=== PATIENT | male | born 1970 | race Caucasian/White ===

== ENCOUNTER 2020-03-10 19:53 | Emergency (ER) | payer SELFPAY ==
--- NOTE | ~2020-03-10 | CT_ITS ---
EXAMINATION: CT facial bones w con DATE: 03/10/2020 23:11 INDICATION: Toothache and fever. TECHNIQUE: Computed tomography (CT) of the facial bones and maxillofacial region was performed with 7 5 mL Omnipaque-350 intravenous contrast. Coronal reconstructions were obtained. Automated exposure co ntrol and iterative reconstruction technique were employed. The dose-length product was 350.77 mGy-cm . COMPARISON: None. FINDINGS: Orbits are normal. Temporomandibular joints are normal alignment. No maxillofacial fractures. Mild mi d cervical spondylosis. Mastoid air cells and middle ear cavities are clear. Moderate mucosal thicken ing in the bilateral ethmoid sinuses which extends into the frontoethmoidal recesses and mild mucosal thickening at the left frontal and bilateral maxillary sinuses. Extensive dental/periodontal disease with a few dental restorations and absent mandibular molars (kevin th #30, 19 and 18). There are larger dental caries at the left maxillary bicuspids (teeth #12 and 13) and multiple smaller erosions along the gum line at numerous additional teeth. There is periapical l ucency surrounding the right mandibular canine and first bicuspid (teeth numbers 27 and 28) the erosi on penetrates the cortex with approximately 16 x 10 x 3 mm overlying periosteal abscess. There is pro minent soft tissue swelling with hyperemia and subcutaneous edema overlying the right mandibular body . Asymmetric mildly enlarged and likely reactive right submandibular and jugular chain lymph nodes. IMPRESSION: 1. Periapical erosion at the right mandibular canine and first premolar which penetrates the cortex w ith small associated periosteal abscess. Reviewed, dictated and finalized at location A. IMPRESSION: 1. Periapical erosion at the right mandibular canine and first premolar which p enetrates the cortex with small associated periosteal abscess.
[2020-03-10 19:56] VITALS: BP 132/89; PULSE 87; RESP 18; TEMP 36.6; O2SAT 98
[2020-03-10 22:40] LABS: Basophils Percent Auto 0.3 % (0.2-1.2); Eosinophils Absolute Auto 0.2 K/mm3 (0-0.3); Eosinophils Percent Auto 1.5 % (0-4.4); Hematocrit 47.5 % (42.0-52.0); Hemoglobin 16.1 g/dL (14.0-18.0); Immature Granulocyte Absolute 0.06 K/mm3 (0.00-0.031); Immature Granulocyte Percent A 0.4 % (0-0.5); Lymphocytes Absolute Auto 1.56 K/mm3 (0.9-3.2); Lymphocytes Percent Auto 11.1 % (18.3-44.2); Mean Corpuscular HGB Conc 33.9 g/dl (32-36); Mean Corpuscular Hemoglobin 30.2 pg (26-34); Mean Corpuscular Volume 89.1 fl (80-100); Mean Platelet Volume 10.7 fl (7.4-10.4); Monocytes Absolute Auto 1.7 K/mm3 (0.1-0.6); Monocytes Percent Auto 11.8 % (2.6-8.5); Neutrophils Absolute Auto 10.5 K/mm3 (1.3-6.7); Neutrophils Percent Auto 74.9 % (45.5-73.1); Platelet Count Result 147 k/mm3 (150-375); Red Blood Count 5.33 M/mm3 (4.6-6.20); Red Cell Distribution Width 14.2 % (11.5-14.5); White Blood Count 14.1 K/mm3 (4.5-10.0)
[2020-03-10] MEDS: KETOROLAC 30 MG/ML VIAL (*BKC) (22:40)
[2020-03-10 22:41] VITALS: TEMP 38
[2020-03-10 22:53] LABS: Anion Gap 7 mmol/L (8-16); Blood Urea Nitrogen 9 mg/dL (9-20); Carbon Dioxide 23 mmol/L (22-30); Chloride 107 mmol/L (98-107); Estimated CRCL calculation 132 ml/min; Estimated Glomerular Filt Rate > 60; Glucose 101 mg/dL (75-110); Potassium 3.7 mmol/L (3.4-5.0); Sodium 137 mmol/L (137-145)
--- NOTE | 2020-03-10 23:29 | ED.DENTAL ---
HPI - Dental/Oral General Chief complaint: Dental/Oral Stated complaint: tooth pain Time Seen by Provider: 03/10/20 21:45 Source: patient and family Mode of arrival: ambulatory Limitations: no limitations History of Present Illness HPI Narrative: 49-year-old with no major medical problems here with complaints of pain and swelling right side of the jaw since yesterday. He also states that he had a low-grade fever. No history of trauma. MD Complaint: tooth pain Location: Tooth # (26,27) Onset (ago): day(s) (1) Duration: constant Severity: moderate Severity scale (1-10): 7 Relieving factors: nothing Exacerbating factors: nothing Context: history of dental caries and poor dental care Associated symptoms: fever and gum swelling Related Data Home Medications Medication Instructions Recorded Confirmed No Home Medications 03/10/20 03/10/20 Allergies Allergy/AdvReac Type Severity Reaction Status Date / Time No Known Allergies Allergy Verified 03/10/20 19:58 Review of Systems Review of Systems: All systems reviewed & are unremarkable except as noted in HPI and below Constitutional: Constitutional: Reports no additional constitutional complaints Eyes: Eyes: Reports no additional eye complaints ENT: Reports as per HPI Cardiovascular: Cardiovascular: Reports no additional cardiovascular complaints Respiratory: Respiratory: Reports no additional respiratory complaints Gastrointestinal: Gastrointestinal: Reports no additional gastrointestinal complaints Musculoskeletal: Musculoskeletal: Reports no additional musculoskeletal complaints Neurologic: Reports system reviewed and no additional complaints, except as documented Endocrine: Endocrine: Reports no additional endocrine complaints PMFSH Social History Social History Gender identity (if verbalized by the patient): Male Exam Narrative: Exam Narrative: GENERAL: Well-appearing, well-nourished, and in no acute distress. Febrile HEAD: Normocephalic, atraumatic. EYES: PERRLA and EOMI. ENT: Nares clear, no rhinorrhea or epistaxis. Mucous membranes moist. Dental caries 2 01/07/2028, moderate soft tissue swelling of the right mandible and lower lip NECK: Supple. CHEST: Clear to auscultation. No respiratory distress. HEART: Regular rate and rhythm. No murmur heard. Normal peripheral pulses. EXTREMITIES: Normal range of motion. No edema. SKIN: Warm, dry, no rash. NEURO: No focal deficits. Alert and oriented x3. PSYCH: Normal mood and affect. Course Vital Signs Vital signs: Vital Signs Temperature 36.6 C 03/10/20 19:56 Pulse Rate 87 03/10/20 19:56 Respiratory Rate 18 03/10/20 19:56 Blood Pressure 132/89 03/10/20 19:56 Pulse Oximetry 98 03/10/20 19:56 Temperature 38.0 C H 03/10/20 22:41 Pulse Rate 87 03/10/20 19:56 Respiratory Rate 18 03/10/20 19:56 Blood Pressure 132/89 03/10/20 19:56 Pulse Oximetry 98 03/10/20 19:56 MDM - Dental/Oral MDM Narrative Medical decision making narrative: With a significant right mandibular swelling like to do CBC chemistry and a CT. Also give him IV Rocephin. Patient states that his pain has much improved and fever has subsided. Discussed labs and CT findings with the patient. Advised him to take antibiotic as prescribed follow-up with the dentist or oral maxillary surgeon. Told him that we do not have oral maxillary surgery or dentist in the hospital prefer to see at [facility] or in his hometown. Patient did understand the instructions. Differential Diagnosis Differential diagnosis: Likely gingival abscess, dental caries and dental abscess Lab Data Result diagrams: 03/10/20 22:30 03/10/20 22:30 Labs: Lab Results 03/10/20 03/10/20 Range/Units 22:30 22:30 WBC 14.1 H (4.5-10.0) K/mm3 RBC 5.33 (4.6-6.20) M/mm3 Hgb 16.1 (14.0-18.0) g/dL Hct 47.5 (42.0-52.0) % MCV 89.1 (80-100) fl
[2020-03-11 00:47] VITALS: TEMP 37.4
== END 2020-03-11 00:47 | disposition home or self-care (01) ==
PROVIDERS: Emergency Provider Family Medicine
DX: K04.7 Periapical abscess without sinus (principal)
CPT/HCPCS: 36415; 70487; 80048; 85025; 96372; 96374; 96375; 99284; J0131; J0696; J1885; Q9967

== ENCOUNTER 2024-02-06 08:39 | Emergency (ER) | payer OTHER, SELFPAY ==
[2024-02-06] VITALS (12 sets, daily range): BP systolic 133–167; BP diastolic 97–107; PULSE 90–101; RESP 17–29; TEMP 37.7–38.4; O2SAT 92–98
--- NOTE | ~2024-02-06 | XR_ITS ---
XR chest 1V portable 02/06/2024 09:34 Indication: Fever and body aches Procedure: AP portable chest Comparison: No prior studies for comparison. Findings: There is bilateral mixed interstitial and airspace disease. No pleural effusion or pneumoth orax. No acute osseous abnormality. Impression: 1: Bilateral mixed interstitial and airspace disease which may represent edema or pneumonia. Reviewed, dictated and finalized at location B. Impression: 1: Bilateral mixed interstitial and airspace disease which may represent edema or pneumonia.
[2024-02-06] MEDS: ACETAMINOPHEN 500 MG TABLET 1000 MG PO (09:21)
--- NOTE | 2024-02-06 09:27 | ED.GENADULT ---
HPI - General Adult General Chief complaint: Unspecified Stated complaint: flu Time Seen by Provider: 02/06/24 08:41 History of Present Illness HPI narrative: 53-year-old male presents to the emergency department for evaluation for fever and body aches. Patient states he began feeling poorly yesterday. Patient describes low-grade fever and body aches. Patient denies chest pain or shortness of breath. Patient denies any nausea vomiting or diarrhea. Related Data Allergies Allergy/AdvReac Type Severity Reaction Status Date / Time No Known Allergies Allergy Verified 03/10/20 19:58 Review of Systems Review of Systems: All systems reviewed & are unremarkable except as noted in HPI and below PMFSH Social History Social History Gender identity (if verbalized by the patient): Male Exam Narrative: APPEARANCE: Well appearing, no pain, no distress, well-nourished. HEAD: normocephalic, atraumatic. EYES: PERRLA/EOMI, conjunctivae clear. NOSE: Normal no drainage EARS:TMS clear with good light reflex. THROAT: Pharynx clear, no exudate. NECK: Supple. No adenopathy, no masses. RESPIRATORY: Airway patent, respirations nonlabored. Clear to auscultation bilaterally, no rales, rhonchi, wheezing. CARDIOVASCULAR: Regular rate and rhythm without murmurs rubs or gallops. ABDOMINAL: Soft, nontender, nondistended, normal bowel sounds MUSCULOSKELETAL: Moves all extremities. Strength/ROM intact, No edema, No calf tenderness. NEURO: Alert. Cranial nerves II through XII intact. Grossly intact SKIN: Warm, dry. Normal Color Course Vital Signs Vital signs: Vital Signs Pulse Rate 101 H 02/06/24 08:46 Respiratory Rate 28 H 02/06/24 08:46 Blood Pressure 167/102 H 02/06/24 08:46 Pulse Oximetry 96 02/06/24 08:46 Temperature 101.1 F H 02/06/24 09:08 Pulse Rate 90 02/06/24 10:30 Respiratory Rate 28 H 02/06/24 10:30 Blood Pressure 144/99 H 02/06/24 10:30 Pulse Oximetry 92 02/06/24 10:30 Oxygen Delivery Room Air 02/06/24 09:08 Medical Decision Making [facility] Narrative Medical decision making narrative: 53-year-old male presents to the emergency department for evaluation of body aches fatigue and low-grade fever that started yesterday. Patient was negative for influenza RSV COVID and strep. Chest x-ray does show evidence of pneumonia. Patient is saturating well on room air. Patient was started on a Cipro and Augmentin well emergency department patient was discharged home on similar medications. Patient was updated the results of workup and treatment plan. Patient was comfortable with plan for treatment for pneumonia. All questions concerns were addressed patient was well-appearing at time of discharge. Differential Diagnosis Differential Diagnosis: COVID, RSV, influenza, strep, pneumonia Vital Signs Vital Signs: Vital Signs Pulse Rate 101 H 02/06/24 08:46 Respiratory Rate 28 H 02/06/24 08:46 Blood Pressure 167/102 H 02/06/24 08:46 Pulse Oximetry 96 02/06/24 08:46 Temperature 101.1 F H 02/06/24 09:08 Pulse Rate 90 02/06/24 10:30 Respiratory Rate 28 H 02/06/24 10:30 Blood Pressure 144/99 H 02/06/24 10:30 Pulse Oximetry 92 02/06/24 10:30 Oxygen Delivery Room Air 02/06/24 09:08 Lab Data Lab results reviewed: Yes I reviewed the patient's lab results. Labs: Lab Results 02/06/24 02/06/24 Range/Units 09:15 09:28 Influenza A (RT-PCR) Negative (Negative) Influenza B (RT-PCR) Negative (Negative) RSV (RT-PCR) Negative (Negative) SARS-CoV-2 RNA (RT-PCR) Negative (Negative) Group A Strep (PCR) Not detected (Negative) Imaging Data Radiologist's impression: Impressions Chest X-Ray 02/06/24 09:35 Impression: 1: Bilateral mixed interstitial and airspace disease which may represent edema or pneumonia. Discharge Plan Discharge Clinical Impression: Pneumonia
[2024-02-06 10:01] LABS: Influenza A QL RT-PCR Negative (Negative); Influenza B QL RT-PCR Negative (Negative); RSV RNA, RT-PCR Negative (Negative); SARS-CoV-2 RNA PCR Negative (Negative)
[2024-02-06 10:07] LABS: Strep Group A RT-PCR NOT DETECTED (Negative)
[2024-02-06] MEDS: AZITHROMYCIN 250 MG TABLET 500 MG PO (10:40)
[2024-02-06] MEDS: AMOXICILLIN/CLAVULANATE K 875-125 MG TAB 1 TABLET PO (10:41)
== END 2024-02-06 10:57 | disposition home or self-care (01) ==
PROVIDERS: Emergency Provider Emergency Medicine
DX: J18.9 Pneumonia, unspecified organism (principal); Z20.822 Contact with and (suspected) exposure to COVID-19
CPT/HCPCS: 71045; 87637; 87651; 99284; A9270

== ENCOUNTER 2024-04-04 08:16 | Outpatient (CLI) | payer OTHER, SELFPAY ==
--- NOTE | ~2024-04-04 | CT_ITS ---
CT Scan of the Chest without Contrast: Clinical Indication: Negative dependence, lung cancer screening Technique: Contiguous sections were acquired throughout the chest without intravenous contrast. Dose reduction technique was used on this scan by utilizing automated exposure control and iterative recon struction technique. The dose-length product (DLP) was 362.34 mGy-cm. Findings: There is no evidence of any significant mediastinal, hilar or axillary lymphadenopathy. Coronary jackie ry calcifications are present. There is no evidence of pleural or pericardial effusion. 5 mm right lower lobe pulmonary nodule present (axial image 74). There is probable focal scarring or atelectasis at the right lung base. Small calcified left basilar granuloma present. There is a 5 mm l eft lower lobe pulmonary nodule (axial image 69). There is a 3 mm left upper lobe pulmonary nodule (a xial image 45). Images through the upper abdomen reveal no abnormalities. Impression: Lung RADS 2: Benign appearance. 12 month follow-up screening CT advised. Reviewed, dictated and finalized at location . Impression: Lung RADS 2: Benign appearance. 12 month follow-up screening CT advised.
== END 2024-04-04 08:17 | disposition home or self-care (01) ==
LOC: MICIMG 08:17
PROVIDERS: PCP Nurse Practitioner; Visit Provider Nurse Practitioner
DX: Z12.2 Encounter for screening for malignant neoplasm of respiratory organs (principal); Z87.891 Personal history of nicotine dependence
CPT/HCPCS: 71271